=== PATIENT | male | born 1940 | race Caucasian/White ===

== ENCOUNTER 2019-06-10 17:58 | Emergency (ER) | payer MEDICARE ==
[~2019-06-10 17:58] MED LIST: Etomidate* 2 MG/ML 20 ML VIAL (40 MG) ONE; Succinylcholine* 20 MG/ML 10 ML VIAL ONE
[2019-06-10] MEDS ORDERED: Propofol* 100 ML ONE (18:12)
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
[2019-06-10] MEDS ORDERED: Rocuronium* 10 MG/ML VIAL IV ONE (18:32)
[2019-06-10] MEDS ORDERED: Propofol* 100 ML IV SCH (19:00)
[2019-06-10 19:01] VITALS: BP 117/51
== END 2019-06-10 19:10 | disposition short-term general hospital (02) ==
LOC: ED 17:58
DX: T20.00XA Burn of unspecified degree of head, face, and neck, unspecified site, initial encounter (principal); T27.3XXA Burn of respiratory tract, part unspecified, initial encounter; R06.02 Shortness of breath; I95.9 Hypotension, unspecified; J44.9 Chronic obstructive pulmonary disease, unspecified; Z87.891 Personal history of nicotine dependence; X08.8XXA Exposure to other specified smoke, fire and flames, initial encounter; Y92.9 Unspecified place or not applicable; R09.02 Hypoxemia
CPT/HCPCS: 71045; 96374; 96375; 99285; J0330; J2704